=== PATIENT | female | born 1985 | race Caucasian/White ===

== ENCOUNTER 2018-05-07 09:51 | Emergency (ER) | payer MEDICAID, SELFPAY ==
[2018-05-07 09:52] VITALS: BP 154/97; PULSE 98; RESP 19; TEMP 36.6; O2SAT 97; BMI 35.6
--- NOTE | 2018-05-07 10:13 | ED.VIS.GEN ---
History of Present Illness Chief Complaint: Abd Pain Informant: Patient Onset: Days - 2 Context: - - unknown -- agrees initially that gradually started and worsened, but then agrees that it was sudden and severe. Timing: Continuous Quality: sharp Location: RLQ. radiates into right back. no migration. Current Severity: Severe Maximum Severity: Severe Worsened by: unk Relieved by: unk Associated Symptoms: n/v/d. no blood. +fevers -- unk degree Narrative: States she has never had this before. Patient seems to alternate historical elements, certainly limiting the ability to narrow down possibilities historically. She states her last normal menstrual period was last month. She thinks it might have been around the or . She states she is usually regular. She then agrees when I suggest that she missed a cycle this month. States she is on control injections. Prior similar symptoms: No Recent Illness/Hospitalization: No Past Medical History - Allergies and Home Meds Allergies/Adverse Reactions: Allergies No Known Allergies Allergy (Verified 05/07/18 09:51) Primary Care Physician: Kojo Willingham DO [NON-STAFF] - Past Medical History: None Surgical History: no surgical history Smoking Status: Current every day smoker Drugs: None Review of Systems General: Reports: Fever, Subjective Eyes: Denies: Visual changes - bilaterally, Diplopia ENT: Denies: Rhinorrhea, Sore throat Cardiovascular: Denies: Chest pain, Palpitations Respiratory: Denies: Dyspnea, Cough, Dyspnea on exertion Gastrointestinal: Reports: Abdominal pain, Nausea, Vomiting, Diarrhea. Denies: Melena, Hematochezia Genitourinary: Denies: Dysuria, Hematuria, Frequency Musculoskeletal: Reports: Back pain. Denies: Extremity Pain Skin: Denies: Rash, Wounds Neurological: Denies: Headache, Weakness, Numbness Physical Exam Vital Signs/Narrative: Vital Signs Temp Pulse Resp BP Pulse Ox 05/07/18 09:52 98 F 98 19 H 154/97 H 97 Inital Vital Signs reviewed: Yes General: Well nourished, Well developed, Obese, No Acute Distress Head: Normocephalic, Atraumatic Eyes: Perrl, EOMI ENT: Moist mucous membranes, No rhinorrhea Neck: Supple, Nontender Cardiovascular: Regular rate, Regular rhythm, No murmurs Respiratory: No distress, CTA bilaterally, Chest nontender Abdomen: Soft, Nondistended, Normal bowel sounds, Tender - Diffuse.. Negative for: Guarding, Rebound tenderness Back: Nontender, Normal Inspection, CVA tenderness - Bilaterally. No rashes. Extremities: Nontender, No edema Skin: Normal color, No rash, No Trauma Neurological: Alert, Oriented x3, Cranial nerves II-XII grossly intact, Normal Strength, Normal Sensation Psychological: Normal affect, Normal Mood Diagnostic/Tx/Re-eval Impressions Abdomen/Pelvis CT 05/07/18 12:27 IMPRESSION: Small appendicolith is seen in the appendix. Dominant follicle seen in the right ovary. Electronically Signed: Natanael Mccormackjosette, at 13:08 EDT , Service support , 05/07/18 12:27 Abdomen/Pelvis without Cont [CT] Stat Laboratory Results 05/07/18 05/07/18 05/07/18 10:05 10:05 10:35 WBC 14.1 H RBC 4.76 Hgb 12.7 Hct 40.4 MCV 84.9 MCH 26.7 L MCHC 31.4 L RDW 14.1 RDW Differential 43.9 Plt Count 388 MPV 10.7 Immature Gran % (Auto) 0.800 Neut % (Auto) 59.3 Lymph % (Auto) 29.5 [place] % (Auto) 8.7 Eos % (Auto) 1.4 Baso % (Auto) 0.3 Absolute Neuts (auto) 8.4 H Absolute Lymphs (auto) 4.16 Total Counted Not Reportable Sodium Potassium Chloride Carbon Dioxide Anion Gap BUN Creatinine Estim Creat Clear Calc Est GFR (MDRD) Af Amer Est GFR (MDRD) Non-Af BUN/Creatinine Ratio Glucose Calcium Urine Color Yellow Urine Clarity Clear Urine pH 7.0 Ur Specific [place] 1.010 Urine Protein Negative Urine Glucose (UA) Normal Urine Ketones Negative Urine Occult Blood Negative Urine Nitrite Negative Urine Bilirubin Negative Urine Urobilinogen Normal Ur Leukocyte Esterase Negative Urine RBC 0 SEEN Urine WBC 0 SEEN Ur Squamous Epith Cells 5-10 SEEN Urine Bacteria 2+ Urine Mucus 0 SEEN Urine Test Negative 05/07/18 10:35 WBC RBC Hgb Hct MCV MCH MCHC RDW RDW Differential Plt Count MPV Immature Gran % (Auto) Neut % (Auto) Lymph % (Auto) [place] % (Auto) Eos % (Auto) Baso % (Auto) Absolute Neuts (auto) Absolute Lymphs (auto) Total Counted Sodium 138 Potassium 3.8 Chloride 106 Carbon Dioxide 28.0 Anion Gap 4 L BUN 7 Creatinine 0.74 Estim Creat Clear Calc 85.52 Est GFR (MDRD) Af Amer 116 Est GFR (MDRD) Non-Af 96 BUN/Creatinine Ratio 9.4 L Glucose 82 Calcium 9.0 Urine Color Urine Clarity Urine pH Ur Specific [place] Urine Protein Urine Glucose (UA) Urine Ketones Urine Occult Blood Urine Nitrite Urine Bilirubin Urine Urobilinogen Ur Leukocyte Esterase Urine RBC Urine WBC Ur Squamous Epith Cells Urine Bacteria Urine Mucus Urine Test - Medical Decision Making negative, so blood work was obtained which shows a leukocytosis of 14.1. Her pain is focused in the right lower quadrant but she is a very poor historian. Ureterolithiasis, appendicitis, ovarian processes are in the differential diagnosis as are other GI etiologies. Given her leukocytosis, CT was obtained. It shows an appendicolith but no clear signs of appendicitis. She asked for more pain medicine other than the Toradol she was initially given, she was given morphine. I reexamined her. She is persistently tender in the right lower quadrant at McBurney's point especially, however she is mildly diffusely tender as well just last. I discussed with Dr. Mckeon for further management. He came to evaluate the patient clinically, and discussed with the radiologist. There is no sign of any inflammation around the appendix and there is air within it. There is a good amount of mesenteric fat around the appendix to show that there is no inflammation, as it is all normal-appearing. There are other possible explanations for leukocytosis, such as gastroenteritis and/or demargination from vomiting. He feels confident that the calcification is an incidental finding, and her clinical syndrome does not represent acute appendicitis at this time by any means. Therefore, my plan was to treat her with some GI medications, reevaluate her, and send her home with either close outpatient follow-up with her PCP or return to the ER for reevaluation if not improving. I discussed with her PCP who agreed with this plan/management, and I ordered the patient a GI cocktail with oral Bentyl, with the plan on prescribing that to her if it helped. However on reevaluating the patient, she and her family eloped prior to being able to discuss all of this with them. Also, somewhere near the end of her ED stay, nursing told me that she was at another hospital yesterday for this same problem. I asked the patient at one point, she admitted that she was at the hospital and [place], had labs and a CT scan as we did and they discharged her home. ED Disposition - Plan for ED Patient: Diagnosis: Diffuse abdominal pain, Nausea, vomiting, and diarrhea Referrals: Kojo Willingham DO [NON-STAFF] -
[2018-05-07] MEDS: Ketorolac 30 MG/ML Syringe IV (10:27)
[2018-05-07] MEDS: Ondansetron 4 MG/2 ML Vial IV (10:27)
--- NOTE | 2018-05-07 10:30 | ED.RN ---
pt states she was also seen in the [facility] yesterday morning for same
[2018-05-07 10:42] LABS: Mucous, Urine 0 SEEN /hpf (<or=2+); Red Blood Cells-Urine 0 SEEN /hpf (0-5); White Blood Cells 0 SEEN /hpf (0-5)
[2018-05-07 10:46] LABS: Color, Urine Yellow (Yellow); Glucose, Dipstick Normal (Normal); Ketone-Dipstick Negative (Negative); Leukocyte Esterase-Dipstick Negative /ul (Negative); Nitrite-Dipstick Negative (Negative); Occult Blood-Urine Negative /ul (Negative); Protein-Dipstick Negative (Negative); Urine Bilirubin Dipstick Negative (Negative); Urine Clarity Clear (Clear); Urine Urobilinogen Normal (Normal)
[2018-05-07 10:49] LABS: Internal QC Validated? YES +Cl - CLEAR BKGD; Pregnancy, Urine Negative Negative
[2018-05-07 10:50] LABS: Absolute Lymphocyte Count 4.16 X10^3/ul (0.83-4.51); Absolute Neutrophil Count 8.4 X10^3/uL (2.0-7.7); Basophil# 0.04 X10^3/uL; Basophil% 0.3 % (0-1); Eosinophils% 1.4 % (0-5); Hematocrit 40.4 % (37-47); Hemoglobin 12.7 g/dl (12.0-15.0); Lymphocyte # 4.16 X10^3/ul (4.0); Lymphocyte % 29.5 % (19-41); Mean Corp Hgb Conc 31.4 g/gl (32-36); Mean Corpuscular Hgb 26.7 pg (27.0-32.0); Mean Corpuscular Volume 84.9 fL (81-99); Mean Platelet Vol. 10.7 fl (6.2-12.0); Monocyte# 1.22 X10^3/uL; Monocyte% 8.7 % (0-10); Neutrophil # 8.37 X10^3/uL (2.7-7.7); Neutrophil % 59.3 % (47-70); Platelet Count 388 K/mm3 (150-450); RBC Distribution Width CV 14.1 % (11.6-14.6); RBC Distribution Width SD 43.9 fl (35.1-43.9); Red Blood Count 4.76 M/mm3 (4.2-5.4); White Blood Count 14.1 K/mm3 (4.4-11.0)
[2018-05-07 10:52] LABS: Bacteria 2+ /hpf (None Seen); Squamous Epithelial Cells - UA 5-10 SEEN /hpf (5-10)
[2018-05-07 10:55] LABS: POSITIVE COUNT NO; POSITIVE DIFFERENTIAL NO; POSITIVE MORPHOLOGY NO
[2018-05-07 11:00] LABS: Anion Gap 4 (5-15); BUN 7 mg/dL (7-18); BUN/Creat Ratio 9.4 RATIO (10-20); Chloride 106 mmol/L (98-107); Creatinine, Serum 0.74 mg/dL (0.55-1.02); EST Glomerular Filtration Rate 96 mL/min (>60); Est Glom Filt Rate - Afr Amer 116 mL/min (>60); Estimated Creatinine Clearance 85.52 ml/min; Glucose 82 mg/dL (74-106); Potassium 3.8 mmol/L (3.5-5.1); Sodium Level 138 mmol/L (136-145)
[2018-05-07 12:22] VITALS: BP 168/104; PULSE 89; RESP 18; O2SAT 99
--- NOTE | 2018-05-07 12:27 | CT_ITS ---
STUDY: CT ABDOMEN AND PELVIS WITHOUT CONTRAST REASON FOR EXAM: Female, 33 years old. 2 day history of right lower quadrant pain. RADIATION DOSAGE (If Supplied By Facility): CTDIvol = ( 13.84 ) mGy, DLP = ( 679.02 ) mGycm TECHNIQUE: Transaxial images were obtained from the dome of the diaphragm to the symphysis pubis without oral contrast, and without intravenous contrast. Sagittal and coronal images were reconstructed. Individualized dose optimization techniques were used for this CT. COMPARISON: None. FINDINGS: The visualized lung bases are unremarkable. The visualized portions of the heart are within normal limits. Normal liver. Normal gallbladder and extrahepatic biliary system. Normal spleen. Normal pancreas. Normal bilateral adrenal glands. Normal right kidney. Normal left kidney. Normal visualized stomach. Normal small intestine. Normal colon. There is a calcified appendicolith. Normal abdominal aorta. Normal inferior vena cava. Normal retroperitoneum. Normal urinary bladder. Abdominal follicle measuring 1.9 cm x 1.8 cm is seen in the right ovary. Small benign-appearing bilateral inguinal lymph nodes. Normal abdominal wall. Normal osseous structures. CT/Abdomen/Pelvis without Cont IMPRESSION: Small appendicolith is seen in the appendix. Dominant follicle seen in the right ovary. Electronically Signed: Natanael Maddox, at 13:08 EDT , Service support ,
[2018-05-07] MEDS: Morphine 4 MG/ML Syringe IV (12:53)
[2018-05-07 14:14] VITALS: BP 147/93; PULSE 95; RESP 16; O2SAT 95
--- NOTE | 2018-05-07 15:07 | PCM.CONS.GEN ---
Problem List (1) Right lower quadrant pain Status: Acute Reason for Consult Date of Consultation: 05/07/18 Reason for Consultation: Right lower quadrant pain History of Present Illness: The patient is a 33 year old F presented to the emergency room after 2 days of right lower quadrant pain. She was in [facility] yesterday. She says that she has been having nausea and vomiting and right lower quadrant pain which is sharp in nature. It radiates to the back. She says her last period was sometime last month but she is irregular. She says that she had some chills and a low-grade fever at home. Past Medical History Allergies No Known Allergies Allergy (Verified 05/07/18 09:51) Home Medications: Ambulatory Orders Medication Instructions Recorded Epi Pen PRN 02/11/15 Levothyroxine 200 mcg PO DAILY 02/11/15 Naproxen [Naprosyn] 500 mg PO BID PRN #20 tablet 06/15/16 Surgical History: no surgical history Smoking Status: Current every day smoker Drugs: None Review of Systems Constitutional: Reports: Anorexia, Chills. Denies: Fever HEENT: Denies: Difficulty Swallowing Cardiovascular: Denies: Chest Pain Respiratory: Denies: Cough, Shortness of Breath Gastrointestinal: Reports: Abdominal Pain, Nausea, Vomiting Genitourinary: Denies: Dysuria Skin: Denies: Jaundice Neurological: Denies: Balance problems Hematologic/ Lymphatic: Denies: Anemia Patient Problems: Active and Suspected Problems Right lower quadrant pain (Acute) - Physical Exam General: Alert, Oriented x3, Cooperative, No apparent distress HEENT: PERRLA Neck: No JVD Lungs: Normal air movement Cardiovascular: Regular rate, Regular Rhythm Abdomen: Soft, Non-Distended, Tender - Right lower quadrant. No guarding or rebound. Psych/Mental Status: Normal Affect Vital Signs Temp Pulse Resp BP Pulse Ox 98 F 95 16 147/93 H 95 05/07/18 09:52 05/07/18 14:14 05/07/18 14:14 05/07/18 14:14 05/07/18 14:14 Weight: 195 lb 1.745 oz Body Mass Index (BMI) 35.6 Laboratory Tests Past 24 Hrs 05/07/18 05/07/18 05/07/18 10:05 10:05 10:35 WBC 14.1 H RBC 4.76 Hgb 12.7 Hct 40.4 MCV 84.9 MCH 26.7 L MCHC 31.4 L RDW 14.1 RDW Differential 43.9 Plt Count 388 MPV 10.7 Immature Gran % (Auto) 0.800 Neut % (Auto) 59.3 Lymph % (Auto) 29.5 [place] % (Auto) 8.7 Eos % (Auto) 1.4 Baso % (Auto) 0.3 Absolute Neuts (auto) 8.4 H Absolute Lymphs (auto) 4.16 Total Counted Not Reportable Sodium Potassium Chloride Carbon Dioxide Anion Gap BUN Creatinine Estim Creat Clear Calc Est GFR (MDRD) Af Amer Est GFR (MDRD) Non-Af BUN/Creatinine Ratio Glucose Calcium Urine Color Yellow Urine Clarity Clear Urine pH 7.0 Ur Specific [place] 1.010 Urine Protein Negative Urine Glucose (UA) Normal Urine Ketones Negative Urine Occult Blood Negative Urine Nitrite Negative Urine Bilirubin Negative Urine Urobilinogen Normal Ur Leukocyte Esterase Negative Urine RBC 0 SEEN Urine WBC 0 SEEN Ur Squamous Epith Cells 5-10 SEEN Urine Bacteria 2+ Urine Mucus 0 SEEN Urine Test Negative 05/07/18 10:35 WBC RBC Hgb Hct MCV MCH MCHC RDW RDW Differential Plt Count MPV Immature Gran % (Auto) Neut % (Auto) Lymph % (Auto) [place] % (Auto) Eos % (Auto) Baso % (Auto) Absolute Neuts (auto) Absolute Lymphs (auto) Total Counted Sodium 138 Potassium 3.8 Chloride 106 Carbon Dioxide 28.0 Anion Gap 4 L BUN 7 Creatinine 0.74 Estim Creat Clear Calc 85.52 Est GFR (MDRD) Af Amer 116 Est GFR (MDRD) Non-Af 96 BUN/Creatinine Ratio 9.4 L Glucose 82 Calcium 9.0 Urine Color Urine Clarity Urine pH Ur Specific [place] Urine Protein Urine Glucose (UA) Urine Ketones Urine Occult Blood Urine Nitrite Urine Bilirubin Urine Urobilinogen Ur Leukocyte Esterase Urine RBC Urine WBC Ur Squamous Epith Cells Urine Bacteria Urine Mucus Urine Test Clinical Impression(s) from Imaging Studies Abdomen/Pelvis CT 05/07/18 12:27 IMPRESSION: Small appendicolith is seen in the appendix. Dominant follicle seen in the right ovary. Electronically Signed: Natanael Maddox, at 13:08 EDT , Service support , Assessment/Plan All Active Problems Right lower quadrant pain (Acute) 33-year-old female with right lower quadrant pain 1. Patient reports that she has been having 2 days of right lower quadrant pain. I reviewed the CT with radiologist and he says this is not appendicitis. I also do not believe it is appendicitis based on the fact that it has been going on for 2 days and the fact that her leukocytosis does not have a left shift. She has a prominent ovarian follicle in the right and this is likely the cause of the abdominal pain. She does not note any migration of the pain and her menstrual cycles are irregular. She may be menstruating and the follicle causing this pain. Given the fact that the CT shows air in the appendix and the patient does not appear septic I think she is safe to go home and follow-up with her PCP. Keenan Mckeon MD Pager: [facility] [address] [place] [address], [address] [place] [address] Office:
--- NOTE | 2018-05-07 15:10 | CON.PCM_ITS ---
Problem List (1) Right lower quadrant pain Status: Acute Reason for Consult Date of Consultation: 05/07/18 Reason for Consultation: Right lower quadrant pain History of Present Illness: The patient is a 33 year old F presented to the emergency room after 2 days of right lower quadrant pain. She was in [facility] yesterday. She says that she has been having nausea and vomiting and right lower quadrant pain which is sharp in nature. It radiates to the back. She says her last period was sometime last month but she is irregular. She says that she had some chills and a low-grade fever at home. Past Medical History Allergies No Known Allergies Allergy (Verified 05/07/18 09:51) Home Medications: Ambulatory Orders Medication Instructions Recorded Epi Pen PRN 02/11/15 Levothyroxine 200 mcg PO DAILY 02/11/15 Naproxen [Naprosyn] 500 mg PO BID PRN #20 tablet 06/15/16 Surgical History: no surgical history Smoking Status: Current every day smoker Drugs: None Review of Systems Constitutional: Reports: Anorexia, Chills. Denies: Fever HEENT: Denies: Difficulty Swallowing Cardiovascular: Denies: Chest Pain Respiratory: Denies: Cough, Shortness of Breath Gastrointestinal: Reports: Abdominal Pain, Nausea, Vomiting Genitourinary: Denies: Dysuria Skin: Denies: Jaundice Neurological: Denies: Balance problems Hematologic/ Lymphatic: Denies: Anemia Patient Problems: Active and Suspected Problems Right lower quadrant pain (Acute) - Physical Exam General: Alert, Oriented x3, Cooperative, No apparent distress HEENT: PERRLA Neck: No JVD Lungs: Normal air movement Cardiovascular: Regular rate, Regular Rhythm Abdomen: Soft, Non-Distended, Tender - Right lower quadrant. No guarding or rebound. Psych/Mental Status: Normal Affect Vital Signs Temp Pulse Resp BP Pulse Ox 98 F 95 16 147/93 H 95 05/07/18 09:52 05/07/18 14:14 05/07/18 14:14 05/07/18 14:14 05/07/18 14:14 Weight: 195 lb 1.745 oz Body Mass Index (BMI) 35.6 Laboratory Tests Past 24 Hrs 05/07/18 05/07/18 05/07/18 10:05 10:05 10:35 WBC 14.1 H RBC 4.76 Hgb 12.7 Hct 40.4 MCV 84.9 MCH 26.7 L MCHC 31.4 L RDW 14.1 RDW Differential 43.9 Plt Count 388 MPV 10.7 Immature Gran % (Auto) 0.800 Neut % (Auto) 59.3 Lymph % (Auto) 29.5 [place] % (Auto) 8.7 Eos % (Auto) 1.4 Baso % (Auto) 0.3 Absolute Neuts (auto) 8.4 H Absolute Lymphs (auto) 4.16 Total Counted Not Reportable Sodium Potassium Chloride Carbon Dioxide Anion Gap BUN Creatinine Estim Creat Clear Calc Est GFR (MDRD) Af Amer Est GFR (MDRD) Non-Af BUN/Creatinine Ratio Glucose Calcium Urine Color Yellow Urine Clarity Clear Urine pH 7.0 Ur Specific [place] 1.010 Urine Protein Negative Urine Glucose (UA) Normal Urine Ketones Negative Urine Occult Blood Negative Urine Nitrite Negative Urine Bilirubin Negative Urine Urobilinogen Normal Ur Leukocyte Esterase Negative Urine RBC 0 SEEN Urine WBC 0 SEEN Ur Squamous Epith Cells 5-10 SEEN Urine Bacteria 2+ Urine Mucus 0 SEEN Urine Test Negative 05/07/18 10:35 WBC RBC Hgb Hct MCV MCH MCHC RDW RDW Differential Plt Count MPV Immature Gran % (Auto) Neut % (Auto) Lymph % (Auto) [place] % (Auto) Eos % (Auto) Baso % (Auto) Absolute Neuts (auto) Absolute Lymphs (auto) Total Counted Sodium 138 Potassium 3.8 Chloride 106 Carbon Dioxide 28.0 Anion Gap 4 L BUN 7 Creatinine 0.74 Estim Creat Clear Calc 85.52 Est GFR (MDRD) Af Amer 116 Est GFR (MDRD) Non-Af 96 BUN/Creatinine Ratio 9.4 L Glucose 82 Calcium 9.0 Urine Color Urine Clarity Urine pH Ur Specific [place] Urine Protein Urine Glucose (UA) Urine Ketones Urine Occult Blood Urine Nitrite Urine Bilirubin Urine Urobilinogen Ur Leukocyte Esterase Urine RBC Urine WBC Ur Squamous Epith Cells Urine Bacteria Urine Mucus Urine Test Clinical Impression(s) from Imaging Studies Abdomen/Pelvis CT 05/07/18 12:27 IMPRESSION: Small appendicolith is seen in the appendix. Dominant follicle seen in the right ovary. Electronically Signed: Natanael Maddox, at 13:08 EDT , Service support , Assessment/Plan All Active Problems Right lower quadrant pain (Acute) 33-year-old female with right lower quadrant pain 1. Patient reports that she has been having 2 days of right lower quadrant pain. I reviewed the CT with radiologist and he says this is not appendicitis. I also do not believe it is appendicitis based on the fact that it has been going on for 2 days and the fact that her leukocytosis does not have a left shift. She has a prominent ovarian follicle in the right and this is likely the cause of the abdominal pain. She does not note any migration of the pain and her menstrual cycles are irregular. She may be menstruating and the follicle causing this pain. Given the fact that the CT shows air in the appendix and the patient does not appear septic I think she is safe to go home and follow-up with her PCP. Keenan Mckeon MD Pager: [facility] [address] [place] [address], [address] [place] [address] Office:
[2018-05-07] MEDS: Dicyclomine 10 MG Capsule 20 MG PO (15:30)
[2018-05-07] MEDS: Mag Hydrox/Al Hydrox/Simeth 30 ML UDC PO (15:30)
[2018-05-07 16:14] VITALS: BP 121/52; PULSE 87; RESP 18; O2SAT 99
--- NOTE | 2018-05-07 16:35 | ED.RN ---
pt was seen ambulating out of the department with family members. pts iv had been removed, pt was waiting on d/c instructions.
== END 2018-05-07 16:57 ==
LOC: ED 10:34
PROVIDERS: Emergency Provider Emergency Medicine; Family Provider Preventive Medicine Occupational Medicine; PCP Preventive Medicine Occupational Medicine
DX: R10.84 Generalized abdominal pain (principal); R11.2 Nausea with vomiting, unspecified; R19.7 Diarrhea, unspecified; F17.200 Nicotine dependence, unspecified, uncomplicated; E66.9 Obesity, unspecified
CPT/HCPCS: 74176; 80048; 81001; 81025; 85025; 96374; 96375; 99284; A4216; J2405